=== PATIENT | female | born 1995 | race Two or more races ===

== ENCOUNTER 2023-12-04 08:02 | Outpatient (CLI) | payer OTHER | END 2023-12-04 08:03 | disposition home or self-care (01) | LOC: PRENATAL 08:02 | PROVIDERS: ATTEND Obstetrics & Gynecology Maternal & Fetal Medicine | DX: O35.9XX0 Maternal care for (suspected) fetal abnormality and damage, unspecified, not applicable or unspecified (principal); O35.3XX0 Maternal care for (suspected) damage to fetus from viral disease in mother, not applicable or unspecified; O44.02 Complete placenta previa NOS or without hemorrhage, second trimester; Z3A.21 21 weeks gestation of pregnancy ==

== ENCOUNTER 2024-04-01 17:54 | Inpatient (IN) | payer OTHER ==
[~2024-04-01] VITALS: Ht 160 cm; Wt 93.4 kg
[2024-04-01 18:43] VITALS: BP 136/68
[2024-04-01] MEDS ORDERED: MISOPROSTOL 25 MCG TABLET VAG ONE (19:10)
[2024-04-01] MEDS ORDERED: RINGERS SOLUTION,LACTATED 1,000 ML IV SCH (20:15)
[2024-04-01] MEDS ORDERED: AMPICILLIN SODIUM 2,000 MG VIAL IV ONE (20:15)
[2024-04-01 20:31] LABS: URINE APPEARANCE Clear; URINE BILIRRUBIN Negative (NEGATIVE); URINE BLOOD Negative; URINE COLOR Yellow; URINE GLUCOSE Negative (NEGATIVE); URINE KETONE 15 (NEGATIVE); URINE LEUKOCYTE Negative; URINE NITRATE Negative; URINE PROTEIN Negative (NEGATIVE); URINE UROBILINOGEN 0.2 E.U./dl
[2024-04-01 20:32] LABS: HEMATOCRIT 38.4 % (36.0-45.00); MEAN CELL VOLUME 84.7 fL (80.00-100.00); MEAN CORPUSCULAR HEMOGLOBIN 28.7 pg (27.00-32.0); MEAN CORPUSCULAR HGB CONC 33.9 g/dl (32.0-36.0); PLATELET COUNT 268 K/uL (150-450); RED BLOOD COUNT 4.53 M/uL (4.00-6.00); RED CELL DISTRIBUTION WIDTH 14.9 % (11.5-14.5)
[2024-04-01 20:34] LABS: URINE BACTERIA 374.5 uL (0.0-1933); URINE EPITHELIAL CELLS 26.4 uL (0.0-38.8); URINE WBC 8.8 uL (0.0-23.2)
[2024-04-01 20:36] LABS: URINE RBC 1.6 uL (0.0-20.8)
[2024-04-01 20:51] LABS: INR 0.95; PARTIAL THROMBOPLASTIN TIME 27.3 SECONDS (22.0-34.0); PROTHROMBIN TIME 10.4 SECONDS (9.0-11.5)
[2024-04-01 20:57] LABS: BILIRUBIN TOTAL 0.3 mg/dL (0.3-1.2); CREATININE SERUM 0.52 mg/dL (0.55-1.02); GFR 140.41; GLOBULINA 3.7 G/DL (2.4-3.5); POTASSIUM 4.23 mEq/L (3.5-5.1); TOTAL PROTEIN 6.7 gm/dL (6.4-8.2)
[2024-04-01 23:19] VITALS: BP 135/71
[2024-04-02] MEDS ORDERED: AMPICILLIN SODIUM 2,000 MG in 0.9 % SODIUM CHLORIDE 100 ML IV SCH
[2024-04-02 04:00] VITALS: BP 122/55
[2024-04-02 07:18] VITALS: BP 122/58
[2024-04-02] MEDS ORDERED: OXYTOCIN 500 ML IV SCH (07:45)
[2024-04-02 11:09] VITALS: BP 130/69
[2024-04-02] MEDS ORDERED: PROMETHAZINE HCL 50 MG/ML AMPUL IV ONE (14:30)
[2024-04-02] MEDS ORDERED: MEPERIDINE HCL/PF 50 MG/ML VIAL IV ONE (14:30)
[2024-04-02 15:30] VITALS: BP 140/60
[2024-04-02 19:34] VITALS: BP 135/68
[2024-04-02] MEDS ORDERED: CEFOXITIN SODIUM 2,000 MG VIAL IV SCH (20:00)
[2024-04-02] MEDS ORDERED: OXYTOCIN 1,000 ML IV SCH (21:00)
[2024-04-02] MEDS ORDERED: SIMETHICONE 125 MG CAPSULE PO SCH (21:00)
[2024-04-02] MEDS ORDERED: PROMETHAZINE HCL 50 MG/ML AMPUL IM PRN (21:15)
[2024-04-02] MEDS ORDERED: MEPERIDINE HCL/PF 50 MG/ML VIAL IM PRN (21:15)
[2024-04-02] MEDS ORDERED: MORPHINE SULFATE 4 MG/ML VIAL IV ONE (23:00)
[2024-04-03] MEDS ORDERED: MORPHINE SULFATE 4 MG/ML VIAL IV ONE (01:00)
[2024-04-03 02:58] VITALS: BP 128/66
[2024-04-03 03:19] LABS: HEMATOCRIT 35.5 % (36.0-45.00); HEMOGLOBIN 12.2 g/dL (12.0-15.00); MEAN CELL VOLUME 83.8 fL (80.00-100.00); MEAN CORPUSCULAR HEMOGLOBIN 28.7 pg (27.00-32.0); MEAN CORPUSCULAR HGB CONC 34.3 g/dl (32.0-36.0); PLATELET COUNT 219 K/uL (150-450); RED BLOOD COUNT 4.23 M/uL (4.00-6.00); RED CELL DISTRIBUTION WIDTH 14.5 % (11.5-14.5)
[2024-04-03] MEDS ORDERED: ACETAMINOPHEN WITH CODEINE 1 UDTAB TABLET PO PRN (08:30)
[2024-04-03 08:53] VITALS: BP 120/79
[2024-04-03] MEDS ORDERED: NAPROXEN 500 MG TABLET PO SCH (09:00)
[2024-04-03] MEDS ORDERED: ERYTHROMYCIN BASE OPHT 1GM EACH TUBE OP ONE (14:30)
[2024-04-03] MEDS ORDERED: OXYTOCIN 10 UNITS/ML VIAL IV ONE (14:30)
[2024-04-03 16:04] VITALS: BP 107/71
[2024-04-04 00:54] VITALS: BP 121/78
[2024-04-04 08:25] VITALS: BP 123/74
[2024-04-04 15:33] VITALS: BP 115/76
[2024-04-05 00:21] VITALS: BP 126/81
[2024-04-05 08:00] VITALS: BP 125/78
[2024-04-05] MEDS ORDERED: NAPR500T14 PO (11:41)
[2024-04-05] MEDS ORDERED: Tylenol #3 PO (11:41)
== END 2024-04-05 12:48 | disposition home or self-care (01) | DRG 788 ==
LOC: LDR 17:54 → OB/GYN 04-02 22:32
PROVIDERS: ADMIT Obstetrics & Gynecology; ATTEND Obstetrics & Gynecology
PROC: 3E0P7VZ Introduction of Hormone into Female Reproductive, Via Natural or Artificial Opening (ICD-10-PCS; 2024-04-01)
PROC: 4A1HXCZ Monitoring of Products of Conception, Cardiac Rate, External Approach (ICD-10-PCS; 2024-04-01)
PROC: 3E033VJ Introduction of Other Hormone into Peripheral Vein, Percutaneous Approach (ICD-10-PCS; 2024-04-02)
PROC: 10D00Z1 Extraction of Products of Conception, Low, Open Approach (ICD-10-PCS; principal; 2024-04-02 20:15)
DX: O82 Encounter for cesarean delivery without indication (principal); O62.0 Primary inadequate contractions; O62.1 Secondary uterine inertia; Z3A.38 38 weeks gestation of pregnancy; Z37.0 Single live birth; Z20.822 Contact with and (suspected) exposure to COVID-19